=== PATIENT | female | born 1950 | race Caucasian/White ===

== ENCOUNTER 2019-03-28 09:28 | Day surgery (SDC) | payer MEDICARE, OTHER ==
[2019-03-28] MEDS ORDERED: LACTATED RINGER'S 1,000 ML IV (10:30)
[2019-03-28] MEDS ORDERED: ROPIVACAINE 0.5 % 30 ML VIAL (11:32)
[2019-03-28] MEDS ORDERED: SEVOFLURANE 15 MIN (12:30)
[2019-03-28] MEDS ORDERED: PHENYLephrine (100 MCG/ML) 10ML SYG (12:30)
[2019-03-28] MEDS ORDERED: LIDOCAINE 2% (SDV) 5 ML INJ (12:30)
[2019-03-28] MEDS ORDERED: PROVENTIL HFA 6.7GM INHALER (12:30)
[2019-03-28] MEDS ORDERED: CEFAZOLIN 1 GM INJ (12:30)
[2019-03-28] MEDS ORDERED: PROPOFOL 200 MG INJ (12:30)
[2019-03-28] MEDS ORDERED: EPHEDrine 25 MG/5 ML SYG (12:30)
[2019-03-28] MEDS ORDERED: ROCURONIUM 50 MG INJ (12:35)
[2019-03-28] MEDS ORDERED: SUCCINYLCHOLINE CHLORIDE 100 MG/5 ML SYG IV (12:35)
[2019-03-28] MEDS ORDERED: MIDAZOLAM 1 MG/ML 2 ML INJ (12:35)
[2019-03-28] MEDS ORDERED: DEXAMETHASONE 4 MG/ML 5 ML INJ (12:35)
[2019-03-28] MEDS ORDERED: ONDANSETRON 4 MG INJ (12:35)
[2019-03-28] MEDS: ROPIVACAINE 0.5 % 30 ML VIAL (13:21)
[2019-03-28] MEDS: METHYLENE BLUE 50 MG/10 ML AMPUL (13:22)
[2019-03-28] MEDS: POLYMYXIN/BACITRACIN 1L IRRIG (13:22)
[2019-03-28] MEDS ORDERED: LABETALOL HCL 20MG INJ IV (13:30)
[2019-03-28] MEDS ORDERED: hydrALAzine 20 MG INJ IV (13:30)
[2019-03-28] MEDS ORDERED: MEPERIDINE 25 MG INJ IV (13:30)
[2019-03-28] MEDS ORDERED: HYDROmorphONE 1 MG/5 ML IV SYRINGE IV ×2 (13:30)
[2019-03-28] MEDS ORDERED: OXYCODONE/ACETAMINOPHEN (5/325) TAB PO ×2 (13:30→15:30)
[2019-03-28] MEDS ORDERED: DIPHENHYDRAMINE 50 MG INJ IV (13:30)
[2019-03-28] MEDS ORDERED: EPHEDrine 25 MG/5 ML SYG IV (13:30)
[2019-03-28] MEDS ORDERED: MIDAZOLAM 1 MG/ML 2 ML INJ IV (13:30)
[2019-03-28] MEDS ORDERED: NEOMYC/POLYMYX/BACIT 30 GM OINT (14:36)
[2019-03-28] MEDS ORDERED: SUGAMMADEX SODIUM 200 MG/2 ML VIAL IV (14:42)
[2019-03-28] MEDS ORDERED: KETOROLAC 30 MG INJ (14:42)
[2019-03-28] MEDS ORDERED: SOD CHLORIDE 0.9% 1,000 ML IV (15:05)
[2019-03-28] MEDS: FENTAnyl 50 MCG/ML VIAL IV ×2 (15:25→15:50)
[2019-03-28] MEDS: ONDANSETRON 4 MG INJ IV (15:26)
[2019-03-28] MEDS ORDERED: morphine 2 MG INJ IV (15:30)
[2019-03-28] MEDS ORDERED: ONDANSETRON 4 MG INJ IV (15:30)
[2019-03-28] MEDS: OXYCODONE/ACETAMINOPHEN (5/325) TAB PO (15:31)
== END 2019-03-28 17:45 | disposition home or self-care (01) ==
LOC: SDS 09:28
DX: M19.072 Primary osteoarthritis, left ankle and foot (principal); M20.12 Hallux valgus (acquired), left foot; I10 Essential (primary) hypertension
CPT/HCPCS: 28750; 73630-LT